=== PATIENT | female | born 1950 | race Caucasian/White ===

== ENCOUNTER → 2016-11-14 | Outpatient (CLI) | payer MEDICARE ==
[~2016-11-14] MED LIST: ESTR2TAB PO; LISI1TAB3 PO; LOVA20TA2 PO; OXYC-229 PO; OXYC30TA66 PO
== END ==
LOC: RAD 13:29
PROVIDERS: ATTEND Neurological Surgery
DX: Z02.9 Encounter for administrative examinations, unspecified (principal)

== ENCOUNTER → 2017-02-12 | Outpatient (CLI) | payer MEDICARE ==
[~2017-02-12] MED LIST changes: +ASCO500T8 PO; +ASPI-496 PO; +CALC-534 PO; +MULT-658 PO; +OMEG-76 PO; -OXYC-229 PO; +OXYC-307 PO; +potassium PO
[2017-02-12 12:09] LABS: PATH.CAST-FLAG NOT PRESENT; SPERM-FLAG NOT PRESENT; SRC-FLAG NOT PRESENT; XTAL-FLAG NOT PRESENT; YLC-FLAG NOT PRESENT
[2017-02-12 12:09] LABS: HEMATOCRIT 40.7 % (34.6-47.8); HEMOGLOBIN 13.6 g/dL (11.7-16.4); WHITE BLOOD COUNT 7.4 x10^3/uL (3.4-10)
[2017-02-12 12:14] LABS: ASPARTATE AMINO TRANSFERASE 37 U/L (15-37); BLOOD UREA NITROGEN 16 mg/dL (7-18)
== END | disposition home or self-care (01) ==
LOC: STAR 10:41
PROVIDERS: ATTEND Neurological Surgery
DX: Z01.818 Encounter for other preprocedural examination (principal); M48.06 Spinal stenosis, lumbar region; R79.89 Other specified abnormal findings of blood chemistry; I10 Essential (primary) hypertension; E78.5 Hyperlipidemia, unspecified; F32.9 Major depressive disorder, single episode, unspecified; I25.2 Old myocardial infarction; Z80.6 Family history of leukemia; Z80.9 Family history of malignant neoplasm, unspecified; Z98.890 Other specified postprocedural states; Z83.3 Family history of diabetes mellitus; Z82.61 Family history of arthritis
CPT/HCPCS: 36415; 71020; 80053; 81001; 85025; 85610; 85730; 87086; 93005

== ENCOUNTER → 2017-04-28 | Outpatient (CLI) | payer MEDICARE, OTHER ==
[~2017-04-28] MED LIST changes: +METH4TAB2 PO; +TIZA4TAB PO
== END | disposition home or self-care (01) ==
LOC: RAD 12:11
PROVIDERS: ATTEND Nurse Practitioner Family
DX: S33.120A Subluxation of L2/L3 lumbar vertebra, initial encounter (principal); S33.130A Subluxation of L3/L4 lumbar vertebra, initial encounter; Z98.1 Arthrodesis status; X58.XXXA Exposure to other specified factors, initial encounter; Y93.89 Activity, other specified; Y92.89 Other specified places as the place of occurrence of the external cause; Y99.8 Other external cause status
CPT/HCPCS: 72100

== ENCOUNTER 2017-05-15 07:19 | Emergency (ER) | payer MEDICARE, OTHER ==
[~2017-05-15] VITALS: Ht 172.7 cm; Wt 69.1 kg
[2017-05-15] MEDS ORDERED: MORPHINE SULFATE 4 MG/ML, 1ML ONE (07:56)
[2017-05-15] MEDS ORDERED: KETOROLAC 30 MG/1 ML ONE (07:56)
[2017-05-15] MEDS ORDERED: ONDANSETRON 2MG/ML, 2ML ONE (07:56)
[2017-05-15] MEDS ORDERED: SODIUM CHLORIDE 0.9% 1,000ML IVBOLUS ONE (08:00)
[2017-05-15] MEDS ORDERED: ONDANSETRON 2MG/ML, 2ML IVPush ONE (08:00)
[2017-05-15] MEDS ORDERED: KETOROLAC 30 MG/1 ML IV ONE (08:00)
[2017-05-15] MEDS ORDERED: DIAZEPAM 5 MG/ML, 2ML IV ONE (08:00)
[2017-05-15] MEDS ORDERED: MORPHINE SULFATE 4 MG/ML, 1ML IVPush PRN (08:00)
[2017-05-15] MEDS ORDERED: SODIUM CHLORIDE FLUSH 10ML SYR IVF ONE (08:00)
[2017-05-15 08:39] LABS: BASOPHILS # (AUTO) 0.05 x10^3/uL (0-0.1); BASOPHILS % (AUTO) 0 % (0-1); EOSINOPHILS # (AUTO) 0.15 x10^3/uL (0-0.4); EOSINOPHILS % (AUTO) 2 % (1-7); LYMPHOCYTES # (AUTO) 1.93 x10^3/uL (1-3.4); LYMPHOCYTES % (AUTO) 19 % (22-44); MD NO; MEAN CORPUSCULAR HEMOGLOBIN 29.1 pg (27.0-34.8); MEAN CORPUSCULAR HGB CONC 33.4 g/dL (32.4-35.8); MEAN PLATELET VOLUME 6.9 fL (7.4-10.4); MONOCYTES # (AUTO) 1.18 x10^3/uL (0.2-0.8); MONOCYTES % (AUTO) 12 % (2-9); NEUTROPHILS # (AUTO) 6.99 x10^3/uL (1.8-6.8); NEUTROPHILS % (AUTO) 68 % (42-75); PLATELET COUNT 367 x10^3/uL (130-400); RED BLOOD COUNT 4.54 x10^6/uL (3.82-5.3); RED CELL DISTRIBUTION WIDTH 14.5 % (9.6-15.2)
[2017-05-15 08:50] LABS: ALBUMIN 3.3 g/dL (3.4-5.0); ANION GAP 7 mmol/L (5-15); CHLORIDE 104 mmol/L (98-107)
[2017-05-15 08:52] LABS: CREATININE 0.82 mg/dL (0.55-1.02)
[2017-05-15 09:36] LABS: MICROSCOPIC AUTO
[2017-05-15 09:38] LABS: CULTURE INDICATED? YES
[2017-05-15 10:12] VITALS: BP 109/71
== END 2017-05-15 10:15 | disposition home or self-care (01) ==
LOC: ED 10:10
DX: S16.1XXA Strain of muscle, fascia and tendon at neck level, initial encounter (principal); I10 Essential (primary) hypertension; E78.5 Hyperlipidemia, unspecified; X58.XXXA Exposure to other specified factors, initial encounter; Y93.89 Activity, other specified; Y92.89 Other specified places as the place of occurrence of the external cause; Y99.8 Other external cause status
CPT/HCPCS: 36415; 72050; 80048; 81001; 82040; 85025; 87086; 93005; 96361; 96374; 96375; 99285; J1885; J2405; J3360; J7030

== ENCOUNTER 2017-06-23 11:10 | Day surgery (SDC) | payer MEDICARE, OTHER ==
[~2017-06-23] VITALS: Ht 172.7 cm; Wt 67.1 kg
[~2017-06-23 11:10] MED LIST changes: -B COMPLEX PO; -HYDR-3241 PO; -KETO10TA PO; -LORTAB; -PROM12.55 PO
[2017-06-23] MEDS ORDERED: LACTATED RINGERS 1,000 ML IV SCH (11:36)
[2017-06-23 11:47] VITALS: BP 145/91
[2017-06-23] MEDS ORDERED: PLEASE ENTER HEIGHT AND WEIGHT MC SCH (12:00)
[2017-06-23] MEDS ORDERED: LIDOCAINE 1%, 2ML SQ PRN (12:00)
[2017-06-23] MEDS ORDERED: B COMPLEX PO (12:01)
[2017-06-23 12:53] LABS: ALANINE AMINOTRANSFERASE 26 U/L (12-78); ALBUMIN 3.2 g/dL (3.4-5.0); ANION GAP 10 mmol/L (5-15); CALCIUM 9.1 mg/dL (8.5-10.1); CHLORIDE 110 mmol/L (98-107); CREATININE 0.62 mg/dL (0.55-1.02)
[2017-06-23 12:55] LABS: ALKALINE PHOSPHATASE 47 U/L (45-117); BILIRUBIN,TOTAL 0.3 mg/dL (0.2-1.0); TOTAL PROTEIN 7.5 g/dL (6.4-8.2)
[2017-06-23] MEDS ORDERED: MIDAZOLAM 1 MG/ML, 2ML ONE (13:26)
[2017-06-23] MEDS ORDERED: FENTANYL PF 250 MCG/5ML ONE ×2 (13:26→16:34)
[2017-06-23] MEDS ORDERED: LIDOCAINE 4%, 4 ML SYR/CANN TP ONE ×2 (13:28→15:00)
[2017-06-23] MEDS ORDERED: ISOSULFAN BLUE 10 MG/ML, 5ML IV ONE (14:47)
[2017-06-23] MEDS ORDERED: PHENYLEPHRINE 10 MG/ML ONE (15:00)
[2017-06-23] MEDS ORDERED: ROCURONIUM 10 MG/ML,10ML ONE (15:00)
[2017-06-23] MEDS ORDERED: SUCCINYLCHOLINE 20 MG/ML, 10ML ONE (15:00)
[2017-06-23] MEDS ORDERED: PROPOFOL 10 MG/ML, 20ML ONE (15:00)
[2017-06-23] MEDS ORDERED: CEFAZOLIN 1,000 MG ONE ×2 (15:14)
[2017-06-23] MEDS ORDERED: ONDANSETRON 2MG/ML, 2ML ONE ×2 (15:15)
[2017-06-23] MEDS ORDERED: DEXAMETHASONE 4 MG/ML, 1ML ONE ×2 (15:15)
[2017-06-23] MEDS ORDERED: EPINEPHRINE 1 MG/ML, 1ML ONE ×3 (15:28→16:44)
[2017-06-23] MEDS ORDERED: BUPIVACAINE/PF 0.5% ONE ×2 (15:28→16:43)
[2017-06-23] MEDS ORDERED: ACETAMINOPHEN 325 MG TABLET PO PRN (15:30)
[2017-06-23] MEDS ORDERED: OXYcodone 5 MG/5 ML ORAL.SOL UDC PO PRN (15:30)
[2017-06-23] MEDS ORDERED: HYDROcodone/APAP 7.5-325MG/15ML UDC PO PRN (15:30)
[2017-06-23] MEDS ORDERED: ONDANSETRON 2MG/ML, 2ML IVPush PRN (15:30)
[2017-06-23] MEDS ORDERED: BUPIVACAINE/PF-EPI 0.5% 1:200K IM ONE (15:37)
[2017-06-23] MEDS ORDERED: FENTANYL PF 100 MCG/2ML ONE ×2 (15:37→17:17)
[2017-06-23] MEDS ORDERED: HYDROmorphone 2 MG/ML, 1ML ONE (17:17)
[2017-06-23] MEDS ORDERED: ACETAMINOPHEN 650 MG/20.3 ML UDC ONE (17:17)
[2017-06-23] MEDS ORDERED: OXYcodone 5 MG/5 ML ORAL.SOL UDC ONE ×2 (17:18→17:30)
[2017-06-23] MEDS: HYDROmorphone 1 MG/ML, 1ML IV PRN ×3 (17:20→17:43)
[2017-06-23] MEDS: FENTANYL PF 100 MCG/2ML IV PRN ×2 (17:35→18:00)
[2017-06-23] MEDS ORDERED: KETOROLAC 30 MG/1 ML ONE (17:45)
[2017-06-23] MEDS ORDERED: KETOROLAC 30 MG/1 ML IVPush ONE ×2 (18:00)
[2017-06-23] MEDS ORDERED: LORTAB (19:37)
[2017-06-23] MEDS ORDERED: HYDR-3241 PO (19:38)
[2017-06-23] MEDS ORDERED: KETO10TA PO (19:40)
[2017-06-23] MEDS ORDERED: PROM12.55 PO (19:42)
[2017-06-24] MEDS ORDERED: LISINOPRIL 10 MG TABLET PO SCH (09:00)
[2017-06-24] MEDS ORDERED: LOVASTATIN 40 MG TABLET PO SCH (09:00)
[2017-06-24] MEDS ORDERED: MULTIVITAMIN 1 TABLET PO SCH (09:00)
[2017-06-24] MEDS ORDERED: ASCORBIC ACID 500 MG TABLET PO SCH (09:00)
[2017-06-24] MEDS ORDERED: CALCIUM/VITAMIN D3 250-125 TABLET PO SCH (09:00)
[2017-06-24] MEDS ORDERED: OMEGA-3/FISH OIL CAPSULE PO SCH (09:00)
[2017-06-24] MEDS ORDERED: ESTRADIOL 2 MG TABLET PO SCH (09:00)
[2017-06-24] MEDS ORDERED: HYDROCHLOROTHIAZIDE 12.5 MG CAPSULE PO SCH (09:00)
== END 2017-06-23 20:55 | disposition home or self-care (01) ==
LOC: OUT 11:10 → 4NOR 18:47 → OUT 20:55
PROVIDERS: ATTEND Surgery
DX: C43.62 Malignant melanoma of left upper limb, including shoulder (principal); R59.9 Enlarged lymph nodes, unspecified; I10 Essential (primary) hypertension; Z98.890 Other specified postprocedural states
CPT/HCPCS: 11603; 36415; 38525; 80053; 88307; 93005; J0171; J0330; J0690; J1100; J1170; J1885; J2250; J2370; J2405; J2704; J3010; J3490; J7120; 88341; 88342; G0461

== ENCOUNTER → 2017-06-23 | Outpatient (CLI) | payer MEDICARE, OTHER ==
[~2017-06-23] MED LIST changes: +B COMPLEX PO; +HYDR-3241 PO; +KETO10TA PO; +LORTAB; +PROM12.55 PO
== END | disposition home or self-care (01) ==
LOC: RAD 09:34
PROVIDERS: ATTEND Surgery
DX: C43.62 Malignant melanoma of left upper limb, including shoulder (principal)
CPT/HCPCS: 78195; A9541

== ENCOUNTER → 2017-07-27 | Outpatient (CLI) | payer MEDICARE, OTHER ==
[~2017-07-27] MED LIST changes: +B COMPLEX PO; +HYDR-3241 PO; +KETO10TA PO; +LORTAB; +PROM12.55 PO
== END | disposition home or self-care (01) ==
LOC: PETCFH 12:12
PROVIDERS: ATTEND Surgery
DX: C43.62 Malignant melanoma of left upper limb, including shoulder (principal)
CPT/HCPCS: 78816; A9552

== ENCOUNTER → 2017-08-26 | Outpatient (CLI) | payer MEDICARE, OTHER | END | disposition home or self-care (01) | LOC: PETCFH 09:57 | PROVIDERS: ATTEND Surgery | DX: C43.62 Malignant melanoma of left upper limb, including shoulder (principal) ==

== ENCOUNTER → 2017-10-05 | Outpatient (CLI) | payer MEDICARE, OTHER | END | disposition home or self-care (01) | LOC: ROC 08:42 | PROVIDERS: ATTEND Radiology Radiation Oncology | DX: C43.62 Malignant melanoma of left upper limb, including shoulder (principal); I10 Essential (primary) hypertension; G89.29 Other chronic pain; E78.5 Hyperlipidemia, unspecified; Z85.820 Personal history of malignant melanoma of skin; Z90.710 Acquired absence of both cervix and uterus | CPT/HCPCS: 99214; G0463 ==

== ENCOUNTER → 2017-10-06 | Outpatient (CLI) | payer MEDICARE, OTHER | END | disposition home or self-care (01) | LOC: CVU 14:08 | PROVIDERS: ATTEND Family Medicine | DX: I08.1 Rheumatic disorders of both mitral and tricuspid valves (principal); I10 Essential (primary) hypertension; E78.5 Hyperlipidemia, unspecified | CPT/HCPCS: 93306 ==

== ENCOUNTER → 2017-11-26 | Outpatient (CLI) | payer MEDICARE | END | disposition home or self-care (01) | LOC: RAD 14:25 | PROVIDERS: ATTEND Registered Nurse Registered Nurse First Assistant | DX: M41.86 Other forms of scoliosis, lumbar region (principal); M51.36 Other intervertebral disc degeneration, lumbar region | CPT/HCPCS: 72110 ==

== ENCOUNTER → 2017-12-31 | Outpatient (CLI) | payer MEDICARE | END | disposition home or self-care (01) | LOC: ROC 07:17 | PROVIDERS: ATTEND Radiology Radiation Oncology | DX: Z02.9 Encounter for administrative examinations, unspecified (principal) ==

== ENCOUNTER → 2018-02-19 | Outpatient (CLI) | payer MEDICARE, OTHER | END | disposition home or self-care (01) | LOC: CFH 11:37 | PROVIDERS: ATTEND Registered Nurse Registered Nurse First Assistant | DX: M47.896 Other spondylosis, lumbar region (principal); M48.07 Spinal stenosis, lumbosacral region; M43.27 Fusion of spine, lumbosacral region; M41.86 Other forms of scoliosis, lumbar region | CPT/HCPCS: 72110; 72148 ==

== ENCOUNTER → 2018-05-24 | Outpatient (CLI) | payer MEDICARE, OTHER | END | disposition home or self-care (01) | LOC: RAD 10:58 | PROVIDERS: ATTEND Family Medicine | DX: M13.862 Other specified arthritis, left knee (principal); M11.262 Other chondrocalcinosis, left knee; M25.762 Osteophyte, left knee ==

== ENCOUNTER → 2019-07-21 | Outpatient (CLI) | payer MEDICARE ==
[~2019-07-21] MED LIST changes: +LISI1TAB23 PO; -LISI1TAB3 PO; -PROM12.55 PO; +PROM12.57 PO; -TIZA4TAB PO; +TIZA4TAB2 PO
== END | disposition home or self-care (01) ==
LOC: CFH 10:24
PROVIDERS: ATTEND Registered Nurse Registered Nurse First Assistant
DX: S33.120A Subluxation of L2/L3 lumbar vertebra, initial encounter (principal); S33.130A Subluxation of L3/L4 lumbar vertebra, initial encounter; M47.812 Spondylosis without myelopathy or radiculopathy, cervical region; M47.816 Spondylosis without myelopathy or radiculopathy, lumbar region; M43.27 Fusion of spine, lumbosacral region; M50.33 Other cervical disc degeneration, cervicothoracic region; M48.02 Spinal stenosis, cervical region; M40.46 Postural lordosis, lumbar region; M48.061 Spinal stenosis, lumbar region without neurogenic claudication; M72.8 Other fibroblastic disorders; M81.8 Other osteoporosis without current pathological fracture; M43.8X6 Other specified deforming dorsopathies, lumbar region; Z98.890 Other specified postprocedural states; X58.XXXA Exposure to other specified factors, initial encounter; Y93.89 Activity, other specified; Y92.89 Other specified places as the place of occurrence of the external cause; Y99.8 Other external cause status
CPT/HCPCS: 72040; 72100; 72141; 72148

== ENCOUNTER 2020-07-11 07:13 | Outpatient (CLI) | payer MEDICARE, OTHER ==
[~2020-07-11 07:13] MED LIST changes: -OXYC-307 PO; +OXYC-380 PO
[2020-07-11] MEDS ORDERED: GADOTERATE 10 MMOL/20 ML VIAL ONE (08:15)
== END 2020-07-11 23:59 | disposition home or self-care (01) ==
LOC: CFH 07:13
PROVIDERS: ATTEND Physical Medicine & Rehabilitation Pain Medicine
DX: M48.061 Spinal stenosis, lumbar region without neurogenic claudication (principal); M43.22 Fusion of spine, cervical region; M41.86 Other forms of scoliosis, lumbar region; M43.27 Fusion of spine, lumbosacral region
CPT/HCPCS: 72040; 72110; 72141; 72158; A9575

== ENCOUNTER → 2020-08-08 | Outpatient (CLI) | payer MEDICARE, OTHER | END | disposition home or self-care (01) | LOC: CFH 13:01 | PROVIDERS: ATTEND Registered Nurse Registered Nurse First Assistant | DX: S33.120A Subluxation of L2/L3 lumbar vertebra, initial encounter (principal); S33.130A Subluxation of L3/L4 lumbar vertebra, initial encounter; M16.0 Bilateral primary osteoarthritis of hip; X58.XXXA Exposure to other specified factors, initial encounter; M48.061 Spinal stenosis, lumbar region without neurogenic claudication; Y93.89 Activity, other specified; Y92.89 Other specified places as the place of occurrence of the external cause; Y99.8 Other external cause status | CPT/HCPCS: 72131; 72192 ==